=== PATIENT | female | born 1975 | race Caucasian/White ===

== ENCOUNTER → 2019-11-18 | Outpatient (CLI) | payer OTHER ==
[~2019-11-18] MED LIST: ALBIPROI INH; ALBU90OI INH; AMOX500 PO; AZIT250 PO; Bactrim Ds Tab1 EACH PO; CEFD300 PO; CODACE30 PO; CODGUAEL PO; CYCL10 PO; HYDACE5 PO; HYDR1TAB94 PO; IBUP400 PO; IBUP800 PO; IBUPROFEN200 MG PO; LIDO700A20 TOP; NAPR550 PO; Norco 5-325 Ta1 EACH PO; OXYACE5T PO; PENVK500; PRED10 PO; PRED20 PO; PRED5 PO; PROM25 PO; Percocet 5-3251 EACH PO; Robaxin500 MG PO; TRIHYD253A
[2019-11-18 18:50] LABS: Influenza A Negative (NEGATIVE); Influenza B Negative (NEGATIVE)
== END | disposition home or self-care (01) ==
LOC: LAB SHORT 16:16 → LAB 16:16
PROVIDERS: Physician Assistant
DX: R05 Cough (principal); R50.9 Fever, unspecified
CPT/HCPCS: 87804